=== PATIENT | female | born 1970 | race Caucasian/White ===

== ENCOUNTER 2016-09-24 05:26 | Emergency (ER) | payer OTHER ==
[~2016-09-24] VITALS: Ht 157.5 cm; Wt 70.0 kg
[~2016-09-24 05:26] MED LIST: IBUP-1152 PO; IBUP-1827 PO; SULF1TAB7 PO; VIC5 PO; [UNRECOGNIZED DRUG - CODE] PO
[2016-09-24 05:29] VITALS: BP 146/97; PULSE 84; RESP 16; O2SAT 97
[2016-09-24 06:02] VITALS: BP 106/68; PULSE 80; RESP 16; O2SAT 99
--- NOTE | 2016-09-24 06:11 | ED.REPORT ---
HPI-GI Bleed Date of Service Sep 24, 2016 ED Provider: Oni Min MD The patient is a 46 year old female who was sent in from [facility] where she was being treated for opiate and alcohol withdrawal. Over the last few days she has had a few episodes of bloody diarrhea. She presented to [facility] twice where they apparently recommended admission but there was no GI available so she was sent back to [facility]. She has continued to have bloody stools and had an episode of hypotension and was then sent here to the emergency department. She has also noticed lower abdominal pain and "swelling." Her pain has been constant and is not changed with eating or drinking. She has not had similar symptoms in the past. She is not taking blood thinners. Nursing Notes Stated Complaint: RECTAL BLEEDING Chief Complaint: Female Abdominal Pain Nursing Notes Reviewed: Yes Allergies: Coded Allergies: No Known Allergies (Verified Allergy, Unknown, 09/24/16) Scheduled Hydrocod/APAP-Expunged, Do Not Renew! (Vicodin-Expunged Drug, Do Not Renew) 1 Tab Tab 1 TAB PO PRN IBUPROFEN-Expunged Drug, Do Not Renew! (IBUPROFEN-Expunged Drug, Do Not Renew!) 800 Mg Tablet 800 MG PO PRN Paroxetine-Expunged Drug, Do Not Renew! (Paxil-Expunged Drug, Do Not Renew!) 10 Mg Tablet 5 MG PO AM Sulfamethoxazole/Trimeth 800-160 mg (Bactrim DS) 1 Each Tablet 1 TABLET PO BID Scheduled PRN Ibuprofen (Ibuprofen) 600 Mg Tablet 600 MG PO QID PRN PRN For Pain General Time Seen by Provider: 06:13 Chief Complaint Chief Complaint: Other (dark/bloody stools) Bleeding Severity: Moderate Hx Obtained From: Patient Arrived By: Walk-in Onset Occurred: 2 days ago Symptom Duration: Since onset Progression Since Onset: Constant Location: : Abdomen lower Quality: Painful Radiation: : Does not radiate Severity: Current: Moderate Severity: Maximum: Moderate Recent Healthcare: No recent hospitalization, Recent doctor visit Similar Sx Previous: No Past Medical History Past Medical History Chronic back pain PTSD History of alcohol abuse Admitted for pyelonephritis December 2012 H/o hidradenitis suppurativa Past Surgical History x3 Tubal ligation Smoking History Current Every Day Smoker Social History In home care Lives alone (youngest child is 20) Alcohol Use: In recovery Drug Use: Denies drug use Other Social History: Local resident Ambulatory Status Independent Review of Systems Review of Systems Note: +dark/bloody stools GI: Reports: Abdominal pain, Denies: Vomiting Complete sys rev & neg: except as marked. Physical Exam Initial Vital Signs Vital Signs (First) Date Time Temp Pulse Resp B/P Pulse Ox O2 Delivery O2 Flow Rate FiO2 09/24/16 05:29 36.1 84 16 146/97 97 Room Air Initial VS: Reviewed Head / Eyes: Atraumatic, Normocephalic, PERRL ENT: Mucous membranes moist, Conjunctiva normal, No scleral icterus Neck: Supple, Non-tender, Full range of motion Lymphatic: No lymphadenopathy Extremities: Vascular intact, Neuro intact, No swelling, No tenderness Skin: Warm, Dry, No cyanosis Neurologic: Alert, Oriented, Nonfocal Psychiatric: Mood/affect normal, Behavior normal, Normal thought content General/Constitutional: Awake, Alert, No acute distress, Cooperative Respiratory / Chest: Atraumatic, Breath sounds NL, Breath sounds = bilat, No respiratory distress, No rales, No rhonchi, No wheezing Cardiovascular: Heart rate NL, Regular rhythm, Heart sounds NL, No gallop, No murmurs, No rubs, Cap refill not delayed, Peripheral circulation NL Abdomen: Soft, No guarding, No rebound, BS normoactive, No distention, No palpable mass, No pulsatile mass She has tenderness to her diffuse about the lower abdomen most in the left and middle parts of her lower abdomen. There is no guarding, rigidity or rebound. No epigastric tenderness. Rectum / Perineum: Atraumatic, Blood - occult heme -, inventory control coordinator passed, No gross blood, No fissures, No hemorrhoids, No lesions, No mass Rectal for Blood: Negative: Maroon stool, Melena present Soft brown stool Lower Extremity / Pelvis / MS: No swelling, Non-tender, Neurologic intact, Vascular intact, No edema No calf swelling or tenderness Interpretation & Diagnostics Lab Results Interpretation Result Diagram: 09/24/16 0550 09/24/16 0550 Test 09/24/16 05:50 09/24/16 07:15 White Blood Count 12.0th/mm3 (3.8-10.1) Red Blood Count 4.40mil/mm3 (3.90-5.20) Hemoglobin 13.1g/dL (12.0-15.6) Hematocrit 40.7% (35.0-46.0) Mean Corpuscular Volume 92.5fL (81-100) Mean Corpuscular Hemoglobin 29.8pg (27.0-35.0) Mean Corpuscular Hemoglobin Concent 32.2% (32.0-37.0) Red Cell Distribution Width 13.9% (12.3-15.4) Platelet Count 315bil/L (150-400) Neutrophils (%) (Auto) 55.9% (40-74) Lymphocytes (%) (Auto) 34.8% (14-46) Monocytes (%) (Auto) 6.6% (4-12) Eosinophils (%) (Auto) 2.1% (0-5) Basophils (%) (Auto) 0.3% (0-3) Prothrombin Time 9.4sec (8.1-12.5) Prothromb Time International Ratio 0.88ratio Sodium Level 141mEq/L (134-144) Potassium Level 4.2mEq/L (3.5-5.2) Chloride Level 106mEq/L (97-108) Carbon Dioxide Level 25mmol/L (18-29) Blood Urea Nitrogen 16mg/dL (6-24) Creatinine 0.46mg/dL (0.57-1.00) Estimat Glomerular Filtration Rate 211mL/min (>59) Glucose Level 80mg/dL (60-99) Calcium Level 8.8mg/dL (8.5-10.1) Total Bilirubin 0.2mg/dL (0.0-1.2) Aspartate Amino Transf (AST/SGOT) 16U/L (0-50) Alanine Aminotransferase (ALT/SGPT) 20U/L (0-32) Alkaline Phosphatase 96U/L (25-150) Total Protein 6.7g/dL (6.4-8.4) Albumin 3.8g/dL (3.4-5.0) Hold Urine Received (Received) ECG Interpretation Time: 06:03 Interpreted by: ED physician Normal ECG Interpretation: Normal ECG w/ rate of... (84), Normal rate, Normal sinus rhythm, No acute ischemic changes, Normal QRS, Normal axis, Normal intervals, Adequate tracing CT Abd / Pelvis Interpretation IMPRESSION: 1. Diverticulosis of the descending and sigmoid colon. No evidence of acute diverticulitis. Colonic thickening is present, which may indicate sequelae of chronic diverticulitis. 2. Diffuse thickening of the distal descending and proximal sigmoid colon, with superimposed focal region of nodular thickening, worrisome for neoplasm; further assessment with endoscopy is recommended. 3. Normal appendix. Dictated by: Ozzy Becerra M.D. on 09/24/2016 at 7:59 Study type: Abdominal CT IV contrast Interpretation / Wet Read by: Interpret - Radiologist Re-Eval/Medical Decision Med Decision/Clinical Course In summary, the patient is a 46-year-old female who presents with a somewhat bizarre history. She states that she has been at [facility] as she has been treated for alcohol dependence. She states that 2 days ago she developed diarrhea that was bright red and somewhat bloody in appearance. She has had several intermittent episodes of bloody appearing diarrhea over the last few days and was evaluated twice at [facility] over the last 24 hours. She states that upon her first evaluation the patient stated that he did not have GI available to do an endoscopy and she was sent home. She reports that she presented a second time and was told to go to a different hospital where GI was available. She reports that she went back to [facility] and had another episode of diarrhea that appeared to be bloody in appearance as well as one isolated blood pressure of systolic in the 80s and was taken here to [facility]. She denies any history of upper or lower GI bleeds, inflammatory bowel disease, hemorrhoids or anal fissures. She does report that she is having sharp/ intermittent lower abdominal pain. Upon arrival here in the emergency department the patient is afebrile with stable vital signs and in no apparent distress. Rectal examination is completely normal with soft brown stool that is guaiac negative. There is no melena or bright red blood. IV access was obtained and we administered morphine for pain, Zofran for nausea and IV fluid bolus. The patient remained hemodynamically stable without hypotension or tachycardia. Laboratory studies were notable as below: WBC of 12, hct of 40.7, CMP is unremarkable, coags normal. Serial abdominal examinations remained completely benign at this time my suspicion for an acute surgical abdominal process is extremely low. I see no evidence of any active GI bleeding in the patient's hematocrit is stable. She is not experienced any symptoms suggestive of significant hypotension nor has she been hypotensive here in the emergency department. I cannot confirm her isolated episode of systolic blood pressure in the 80s at [facility] though I see no evidence of significant blood loss or hemodynamic instability here today. CT scan was obtained as below: IMPRESSION: 1. Diverticulosis of the descending and sigmoid colon. No evidence of acute diverticulitis. Colonic thickening is present, which may indicate sequelae of chronic diverticulitis. 2. Diffuse thickening of the distal descending and proximal sigmoid colon, with superimposed focal region of nodular thickening, worrisome for neoplasm; further assessment with endoscopy is recommended. 3. Normal appendix. At this time I see no evidence of ongoing blood loss nor do I see any indication for immediate admission and colonoscopy. The patient has been referred to gastroenterology on an outpatient basis. She is advised to return right away should she develop any melena, recurrent bleeding or other concerning signs or symptoms. I do believe that she needs evaluation by a parts remover though I do not think this needs to be done on an emergent basis. Follow-up and return precautions were reviewed in detail and the patient was discharged in good condition. Source of Hx: Old records Re-Evaluation/Progress #1: Time of Eval: 06:47 Re-Evaluation/Progress Note: Completed rectal exam. Re-Evaluation/Progress #2: Time of Eval: 08:24 Re-Evaluation/Progress Note: Discussed CT scan results and plan for discharge. All questions were addressed. Counseled Regarding: Diagnosis, Lab results, Need for follow-up, When/why to return to ED Discharge & Departure Impression: Primary Impression: Bloody diarrhea Additional Impressions: Generalized abdominal pain Polysubstance abuse Disposition: Home Discharge Condition All VS Reviewed: Yes Condition: Stable Additional Instructions: Thank you for seeking care at the emergency room. You were seen because you had some bloody appearing diarrhea. Your blood counts are stable and we don't see any blood in your stool at this time. We can't be sure this isn't due to inflammatory bowel disease or a possible tumor. You need to get a colonoscopy . You should be seen and evaluated by an parts remover in the next few days. We have given you a referral to Dr. Delgadillo. Call his office tomorrow to schedule an appointment. You should return to the ED immediately if you develop lightheadedness, rectal bleeding, black/tarry stools, bloody stools, worsening abdominal pain, or any other concerning signs or symptoms. Thank you for letting us partake in your care today. Referrals: Malvin Delgadillo MD [facility] Scribe Attestation Portions of this note were transcribed by Sunitha Choudhury. I, Dr. Min personally performed the history, physical exam and medical decision-making; I reviewed and confirmed the accuracy of the information in the transcribed note. Signed by: Gisselle Padron, 09/24/2016 and 0830. copies to: Malvin Delgadillo MD; [facility] Oni Min MD Sep 24, 2016 06:11 Sunitha Choudhury Sep 24, 2016 06:20
[2016-09-24 06:26] LABS: BASOPHILS % (AUTO) 0.3 % (0-3); EOSINOPHILS % (AUTO) 2.1 % (0-5); MONOCYTES % (AUTO) 6.6 % (4-12); Mean Corpuscular Hemoglobin 29.8 pg (27.0-35.0); Mean Corpuscular Volume 92.5 fL (81-100); NEUTROPHILS % (AUTO) 55.9 % (40-74); Platelet Count 315 bil/L (150-400)
[2016-09-24] MEDS ORDERED: 0.9% Sodium Chloride 1,000 ML IV ONE (06:28)
[2016-09-24] MEDS ORDERED: Ondansetron 2 mg/mL 2 mL Inj IVPUSH ONE (06:30)
[2016-09-24 06:36] LABS: INR 0.88 ratio
--- NOTE | 2016-09-24 08:05 | DRSVH ---
PROCEDURE: CT ABDOMEN AND PELVIS WITH CONTRAST ([id number]) INDICATIONS: LLQ pain, rectal bleeding TECHNIQUE: After the administration of oral and intravenous contrast, 5 mm thick sections acquired from the diap hragms to the symphysis. 5 mm thick coronal and sagittal reformats were performed. For radiation do se reduction, the following was used: automated exposure control, adjustment of mA and/or kV accordi ng to patient size. COMPARISON: [facility], CT, ABD/PELVIS W/CON (PN), 10/03/2011, 20:54. [facility], CT, ABD/PELVIS W/CON (PNL), 12/07/2012, 2:52. FINDINGS: Image quality: Excellent. ABDOMEN: Lung bases: Lung bases are clear. Heart size is normal. Solid organs: Liver and spleen are normal in size and enhancement. Gallbladder is within normal eduardo its. Biliary system is non-dilated. Pancreas enhances normally. There is calcification of the pancr eatic head and neck, as before. No adrenal nodules. Kidneys are normal in size and enhancement, with out hydronephrosis. Peritoneum and bowel: The stomach is within normal limits. Small bowel is grossly unremarkable. Appen gabe is normal. There is a moderate diffuse colonic stool. There is diverticulosis of the descending a nd sigmoid colon. There is moderate diffuse thickening of the distal descending and proximal sigmoid colon, new since the prior examination. There is a superimposed 17 mm diameter mural nodule seen with in the proximal/mid sigmoid colon within the left hemipelvis. No pericolonic fat stranding to indicat e diverticulitis. No free fluid or air. Nodes and vessels: No retroperitoneal or mesenteric adenopathy. Aorta and inferior vena cava are no rmal in caliber. Miscellaneous: No ventral hernias. PELVIS: Genitourinary: Bladder wall thickness is normal. Miscellaneous: No inguinal hernias or adenopathy. Bones: No suspicious bony lesions. No vertebral body compression fractures. IMPRESSION: 1. Diverticulosis of the descending and sigmoid colon. No evidence of acute diverticulitis. Colonic t hickening is present, which may indicate sequelae of chronic diverticulitis. 2. Diffuse thickening of the distal descending and proximal sigmoid colon, with superimposed focal re gion of nodular thickening, worrisome for neoplasm; further assessment with endoscopy is recommended. 3. Normal appendix. Dictated by: Ozzy Becerra M.D. on 09/24/2016 at 7:59 Approved by: Ozzy Becerra M.D. on 09/24/2016 at 8:03
[2016-09-24 08:51] VITALS: BP 160/110; PULSE 81
== END 2016-09-24 08:45 | disposition home or self-care (01) ==
LOC: SED 05:26
DX: R19.5 Other fecal abnormalities (principal); R10.84 Generalized abdominal pain; F11.10 Opioid abuse, uncomplicated; F17.200 Nicotine dependence, unspecified, uncomplicated; G89.29 Other chronic pain; Z87.448 Personal history of other diseases of urinary system
CPT/HCPCS: 36415; 74177; 80053; 85025; 85610; 86850; 93005; 96374; 96375; 99285; J2270; J2405; J7030; Q9967

== ENCOUNTER 2016-09-25 16:06 | Emergency (ER) | payer OTHER ==
[~2016-09-25] VITALS: Ht 157.5 cm; Wt 68.2 kg
[2016-09-25 16:13] VITALS: BP 128/88; PULSE 118; RESP 20; O2SAT 96
--- NOTE | 2016-09-25 18:05 | ED.REPORT ---
HPI-General Illness Date of Service Sep 25, 2016 ED Provider: Rodrigo Funez MD Pt is a 46 y/o female presenting to the ED for a recheck. The pt was seen in the ED here yesterday after vague complaints of bloody diarrhea. Her physical exam yesterday was quite benign and her rectal exam was benign with soft brown stool. A CT scan at that time showed diverticulosis without signs of diverticulitis. She has noticed some mild blood in the toilet bowl and around the stool since yesterday. She returns here because she wont be able to see a PCP in 4 days and has a colonoscopy in 8 days. She denies abdominal pain, vomiting, lightheadedness. She states that she is anxious and would like another guaiac test and says "I am fine, I just want to ease my mind". Nursing Notes Stated Complaint: CHECK UP ON RECTAL BLEED Chief Complaint: Female Abdominal Pain Nursing Notes Reviewed: Yes Allergies: Coded Allergies: No Known Allergies (Verified Allergy, Unknown, 09/24/16) Scheduled Hydrocod/APAP-Expunged, Do Not Renew! (Vicodin-Expunged Drug, Do Not Renew) 1 Tab Tab 1 TAB PO PRN IBUPROFEN-Expunged Drug, Do Not Renew! (IBUPROFEN-Expunged Drug, Do Not Renew!) 800 Mg Tablet 800 MG PO PRN Paroxetine-Expunged Drug, Do Not Renew! (Paxil-Expunged Drug, Do Not Renew!) 10 Mg Tablet 5 MG PO AM Sulfamethoxazole/Trimeth 800-160 mg (Bactrim DS) 1 Each Tablet 1 TABLET PO BID Scheduled PRN Ibuprofen (Ibuprofen) 600 Mg Tablet 600 MG PO QID PRN PRN For Pain General Time Seen by MD: 18:01 Chief Complaint Other (Recheck) Hx Obtained From: Patient Arrived By: Walk-in Sudden in Onset?: No Onset Occurred: 1 - 4 hours ago Symptom Duration: Since onset Severity: Current: No pain currently Severity: Maximum: No pain Recent Healthcare: Recent testing, Previous diagnosis, Previous surgery, Prior workup Similar Sx Previous: Yes Past Medical History Past Medical History Chronic back pain PTSD History of alcohol abuse Admitted for pyelonephritis December 2012 H/o hidradenitis suppurativa Past Surgical History x3 Tubal ligation Smoking History Current Every Day Smoker Social History In home care Lives alone (youngest child is 20) Alcohol Use: In recovery Drug Use: Denies drug use Other Social History: Local resident Ambulatory Status Independent Review of Systems Full Review of Systems Constitutional: Denies: Chills, Fever GI: Reports: Bloody/tarry stool, Denies: Abdominal pain, Nausea, Vomiting Neurologic: Denies: Lightheaded Complete sys rev & neg: except as marked. Physical Exam Vital Signs Vital Signs Date Time Temp Pulse Resp B/P Pulse Ox O2 Delivery O2 Flow Rate FiO2 09/25/16 16:13 36.1 118 20 128/88 96 Room Air Initial VS: Reviewed, Vital signs abnormal Head / Eyes: Atraumatic, Normocephalic, PERRL ENT: Mucous membranes moist, Conjunctiva normal, No scleral icterus Neck: Full range of motion Respiratory: No respiratory distress Cardiovascular: Intact distal pulses Abdomen / GI: Soft, Non-tender, No guarding, No rebound, No distention Skin: Warm, Dry, No cyanosis Neurologic: Alert, Oriented, Nonfocal Psychiatric: Mood/affect normal, Behavior normal, Normal thought content Rectum / Perineum: Atraumatic, Blood - occult heme -, No gross blood Re-Eval/Medical Decision Counseled Regarding: Diagnosis, Need for follow-up, When/why to return to ED Discharge & Departure Primary Impression: Worried well Disposition: Home Discharge Condition All VS Reviewed: Yes Condition: Stable Additional Instructions: No evidence of rectal bleeding today. When you have blood in the rectum it serves as a dramatic cathartic and you would not be able to hold your bowels without rushing to the bathroom. If you have dramatic blood loss from the rectum or vomiting or if you faint or feel exceedingly lightheaded, return to the emergency department. Otherwise follow up as previously arranged. Keep your scheduled appointment to meet your new primary care doctor. Keep your appointment for the colonoscopy. Return to the emergency department if you feel lightheaded, notice increased bleeding, experience black stools, vomiting, abdominal pain, or for other concerning symptoms. Referrals: [facility] Scribe Attestation Portions of this note were transcribed by Myles Hermosillo. I, Dr. Funez personally performed the history, physical exam and medical decision-making; I reviewed and confirmed the accuracy of the information in the transcribed note. Signed by Gisselle Monson, 09/25/161829 Rodrigo Funez MD Sep 25, 2016 18:05 MYLES HERMOSILLO Sep 25, 2016 18:14
== END 2016-09-25 18:25 | disposition home or self-care (01) ==
LOC: SED 16:06
DX: R19.7 Diarrhea, unspecified (principal); K92.1 Melena; F17.200 Nicotine dependence, unspecified, uncomplicated; Z71.1 Person with feared health complaint in whom no diagnosis is made